=== PATIENT | female | born 1990 | race Caucasian/White ===

== ENCOUNTER 2019-06-10 13:44 | Emergency (ER) | payer MEDICAID, SELFPAY ==
[2019-06-10 13:54] VITALS: BP 122/77; PULSE 105; RESP 19; TEMP 36.3; O2SAT 99
--- NOTE | 2019-06-10 14:03 | ED.URI ---
HPI - URI/Sore Throat General Chief Complaint: Upper Respiratory Infection Stated Complaint: sore throat/fever/vomiting Time Seen by Provider: 06/10/19 14:03 Source: patient and RN notes reviewed History of Present Illness HPI Narrative: Patient is a 29-year-old female presents the urgent care with complaints of fever, sore throat, vomiting, nausea. Patient states that her son and daughter both had strep within the last 2 weeks but she did not think she could get it because she is currently on amoxicillin . Patient states that her oral surgeon put her on amoxicillin prior to having her wisdom teeth extracted. Patient states she is been taking the medication since May 18. No other acute complaints. Denies of abdominal pain or diarrhea. No acute distress noted. Patient read the plan of care. Related Data Home Medications Medication Instructions Recorded Confirmed amoxicillin 500 mg PO Q12H 06/10/19 06/10/19 Allergies Allergy/AdvReac Type Severity Reaction Status Date / Time ciprofloxacin Allergy Unknown Unknown Verified 06/10/19 13:53 Sulfa (Sulfonamide Allergy Unknown Difficulty Verified 06/10/19 13:53 Antibiotics) Breathing Review of Systems Review of Systems: Narrative: CONSTITUTIONAL: Reports a fever EYES: Denies visual changes, redness, or discharge. ENT: Reports of sore throat CARDIOVASCULAR: Denies chest pain, palpitations, or edema. RESPIRATORY: Denies cough or dyspnea. GASTROINTESTINAL: Reports of nausea and vomiting without abdominal pain or diarrhea GENITOURINARY: Denies dysuria or hematuria. SKIN: Denies rash or itching. MUSCULOSKELETAL: Denies back pain, joint pain, or myalgia. NEUROLOGIC: Denies headache, numbness, or weakness. All other systems reviewed are negative, except as documented in HPI. FOR[facility]LY [facility] Family History Family History (Updated 07/10/16 @ 11:04 by DOCTOR UNKNOWN) Grandparent Hypertension Cerebrovascular accident Carcinoma of colon Family history of lung cancer Family history of coronary artery disease Diabetes mellitus Family history of malignant neoplasm of male breast Mother Hypertension Family history of elevated blood lipids Father Family history of elevated blood lipids Sibling Family history of malignant neoplasm of cervix Other Family history of allergic disorder Family history of arthritis Social History Social History Smoking status: Never smoker Second hand tobacco smoke exposure: No Smoking end date: 03/31/11 Alcohol intake: current Substance use type: marijuana Comments At the time of my signature, I reviewed and agree with the nursing past medical, surgical, social, and family history. There is no relevant family history pertinent to the patient complaint. Exam Narrative: Exam Narrative: GENERAL: This is a well-nourished, well-developed patient, in no apparent distress. HEAD: normocephalic, atraumatic. EYES: PERRL. Sclera clear/white. Vision is grossly intact. EARS: External ears normal, auditory canals clear and without drainage, TMs normal without perforation. Hearing grossly intact. NOSE: External nose normal with no obvious nasal discharge, nares without redness, clear rhinorrhea. THROAT: Mucous membranes moist, moderate erythema noted posterior oropharynx with exudate noted to the left with mild tonsillar edema NECK: Neck supple, non-tender without lymphadenopathy CARDIOVASCULAR: Regular rate and rhythm without murmurs, gallops, or rubs. RESPIRATORY: Clear to auscultation. Breath sounds equal bilaterally. No wheezes, rales, or rhonchi. SKIN: warm, intact with no suspicious lesions or rash, good texture and turgor. NEURO: awake, alert, and oriented to person, place and time. There were no obvious focal neurologic abnormalities. EXTREMITIES: No clubbing, cyanosis, or edema. Course Vital Signs Vital signs: Vital Signs Temperature 97.4 F L 06/10/19 13:54 Pulse Rate 105 H 06/10/19 13:54 Respiratory Rate 19 03/
== END 2019-06-10 14:18 | disposition home or self-care (01) ==
PROVIDERS: Emergency Provider Nurse Practitioner Family
DX: J02.0 Streptococcal pharyngitis (principal)
CPT/HCPCS: 87880; 99213; G0463

== ENCOUNTER 2020-02-10 15:21 | Outpatient (CLI) | payer BC, SELFPAY ==
--- NOTE | ~2020-02-10 | US_ITS ---
EXAMINATION: US breast RT complete HISTORY: Mastodynia and nipple discharge TECHNIQUE: Complete right breast ultrasound was performed including all four quadrants the subareolar region. FINDINGS: No suspicious cystic or solid mass is identified in the breast. No subareolar mass or dilat ed subareolar duct is seen. IMPRESSION: No specific sonographic correlate is identified for the reported right breast pain or nipple discharg e. Further evaluation at this time should be based on clinical assessment. Continued follow-up physic al examination is recommended. Consider surgical consultation. BI-RADS Category 1: Negative Reviewed, dictated and finalized at location A. 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 Further evaluation at this time should be based on cli nical assessment. Continued follow-up physical examination is recommended. Cons ider surgical consultation. BI-RADS Category 1: Negative
== END 2020-02-10 15:22 | disposition home or self-care (01) ==
PROVIDERS: Visit Provider Obstetrics & Gynecology
DX: N64.4 Mastodynia (principal)
CPT/HCPCS: 76641

== ENCOUNTER → 2020-02-16 11:01 | Outpatient (CLI) | payer BC, SELFPAY ==
--- NOTE | ~2020-02-16 | XR_ITS ---
EXAMINATION: XR lumbar spine 2-3V DATE: 02/16/2020 11:30 INDICATION: Low back pain. TECHNIQUE: 3 views of lumbar spine were obtained. COMPARISON: None. FINDINGS: Bone alignment is normal. Vertebral body heights are normal. There is mildly decreased disc height at L4-L5. The facet joints are unremarkable. IMPRESSION: 1. Mild lumbar spondylosis. Reviewed, dictated and finalized at location A. 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 Mild lumbar spondylosis.
--- NOTE | ~2020-02-16 | XR_ITS ---
EXAMINATION: XR abdomen/kub 1V EXAM DATE: 02/16/2020 11:30 INDICATION: R10.9 - Unspecified abdominal pain. Unresolved bladder infection. TECHNIQUE: Frontal projection of the upper abdomen, frontal projection lower abdomen/pelvis for inter pretation. Comparison is made to prior examination from 05/04/2010. FINDINGS: There is expected amount of colonic stool and gas. No small bowel dilation, nonobstructiv e bowel gas pattern. There are no suspicious calcifications identified. There is no organomegaly suspected. The bones are unremarkable. IMPRESSION: Unremarkable abdomen x-ray exam. Reviewed, dictated and finalized at location A. 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
== END ==
PROVIDERS: PCP Family Medicine; Visit Provider Physician Assistant
DX: M47.816 Spondylosis without myelopathy or radiculopathy, lumbar region (principal); R10.9 Unspecified abdominal pain
CPT/HCPCS: 72100; 74018

== ENCOUNTER 2020-02-22 09:59 | Outpatient (CLI) | payer BC, SELFPAY ==
--- NOTE | ~2020-02-22 | US_ITS ---
EXAMINATION: US pelvic complete w TV DATE: 02/22/2020 10:40 INDICATION: Pelvic pain Comparison:No prior studies for comparison. TECHNIQUE: Multiple transabdominal and endovaginal sonographic images of the pelvis performed. FINDINGS: The uterus measures 8.3 x 3.9 x 6.1 cm. The endometrial complex measures 7 mm. The right ovary measures 2.6 x 2.6 x 1.9 cm and the left ovary measures 1.6 x 1.4 x 1.2 cm. There ar e small follicles in each ovary. There is no free fluid in the pelvis. There are no abnormal masses seen on either side. IMPRESSION: 1. Unremarkable pelvic ultrasound. Reviewed, dictated and finalized at location A. CAPTAIN
== END 2020-02-22 10:00 | disposition home or self-care (01) ==
LOC: ANHIMG 10:04
PROVIDERS: PCP Family Medicine; Visit Provider Obstetrics & Gynecology
DX: R10.2 Pelvic and perineal pain (principal)
CPT/HCPCS: 76830; 76856

== ENCOUNTER 2020-06-14 13:29 | Outpatient (CLI) | payer BC, SELFPAY ==
--- NOTE | ~2020-06-14 | US_ITS ---
EXAMINATION: US pelvic complete EXAM DATE: 06/14/2020 14:30 INDICATION: R10.32 - Left lower quadrant pain. Tubal ligation. TECHNIQUE: Pelvic transabdominal sonogram was performed. Patient declined transvaginal imaging. There are multiple grayscale and Doppler images available for interpretation. Comparison is made to prior examination from 02/22/2020. FINDINGS: Uterus measures 9.6 x 5.2 x 3.3 cm, and is morphologically normal. Endometrial stripe sharona sures 6 mm, within normal limits. There is no free pelvic fluid. Right adnexa: The ovary measures 2.4 x 1.0 x 1.1 cm and is morphologically normal. Ovarian vascular f low confirmed. Left adnexa: The ovary measures 3.5 x 2.2 x 1.8 cm and is morphologically normal. Ovarian vascular fl ow confirmed. IMPRESSION: 1. Unremarkable pelvic ultrasound exam. Reviewed, dictated and finalized at location A.
[2020-06-14 13:50] LABS: Hematocrit 45.3 % (37.0-47.0); Hemoglobin 14.9 g/dL (12.0-15.0); Mean Corpuscular HGB Conc 32.9 g/dl (32-36); Mean Corpuscular Volume 91.3 fl (80-100); Mean Platelet Volume 9.4 fl (7.4-10.4); Platelet Count Result 362 k/mm3 (150-375); Red Blood Count 4.96 M/mm3 (4.2-5.4); Red Cell Distribution Width 12.4 % (11.5-14.5); White Blood Count 22.7 K/mm3 (4.5-10.0)
[2020-06-14 13:57] LABS: Alanine Aminotransferase 16 U/L (4-35); Albumin Level 4.3 g/dL (3.5-5.1); Alkaline Phosphatase 90 U/L (38-126); Anion Gap 8 mmol/L (8-16); Aspartate Amino Transferase 20 U/L (14-36); Bilirubin,Total 0.1 mg/dL (0.2-1.3); Blood Urea Nitrogen 15 mg/dL (7-17); Calcium 9.3 mg/dL (8.4-10.2); Carbon Dioxide 23 mmol/L (22-30); Chloride 106 mmol/L (98-107); Estimated Glomerular Filt Rate > 60; Glucose 113 mg/dL (65-105); Potassium 4.5 mmol/L (3.4-5.0); Sodium 137 mmol/L (137-145)
== END 2020-06-14 13:30 | disposition home or self-care (01) ==
PROVIDERS: PCP Family Medicine; Visit Provider Family Medicine
DX: R10.32 Left lower quadrant pain (principal)
CPT/HCPCS: 36415; 76856; 80053; 85027

== ENCOUNTER 2020-06-18 09:05 | Outpatient (CLI) | payer BC, SELFPAY ==
--- NOTE | ~2020-06-18 | CT_ITS ---
EXAMINATION: CT abdomen pelvis w con DATE: 06/18/2020 11:01 INDICATION: Left lower quadrant abdominal pain TECHNIQUE: Computed tomography (CT) of the abdomen and pelvis was performed with 100 cc Omnipaque 350 intravenous contrast. Automated exposure control and iterative reconstruction technique were employe d. Exam dose: 754.86 mGy-cm total exam DLP. COMPARISON: 06/14/2020 pelvic ultrasound 02/16/2020 KUB FINDINGS: Lung bases are clear of infiltrate or consolidation. Normal heart size. No pericardial or pleural effusion. The liver, gallbladder, bile ducts, spleen, pancreas, pancreatic duct, and adrenal glands and kidneys are unremarkable. Normal caliber of the abdominal aorta. No intraperitoneal or retroperitoneal or pelvic mass lesion or adenopathy or ascites. The uterus, adnexal areas and urinary bladder are unremarkable. Normal appendix. No bowel obstruction, bowel wall thickening, pneumatosis or intraperitoneal free air is detected. Small fat-containing umbilical hernia. Included skeletal structures are unremarkable. IMPRESSION: No significant abnormality Reviewed, dictated and finalized at Location A. Reviewed, dictated and finalized at location A. IMPRESSION: No significant abnormality
--- NOTE | ~2020-06-18 | MR_ITS ---
EXAMINATION: MR lumbar spine wo con DATE: 06/18/2020 10:39 INDICATION: Lumbar radiculopathy TECHNIQUE: Magnetic resonance imaging (MRI) of the lumbar spine was performed without intravenous con trast. Sequences included sagittal T2-weighted FSE, sagittal T2-weighted FS FSE, sagittal T1-weighted FSE, and axial T2-weighted FSE. COMPARISON: None FINDINGS: Straightening of the normal lumbar lordosis. 2 mm retrolisthesis L4 on L5 and 3-4 mm retrolisthesis L 5 on S1. Vertebral body heights are normal. Normal marrow signal. Mild disc desiccation and mild dis c height loss at L3-L4. More prominent disc desiccation and moderate disc height loss at L4-L5 and L5 -S1. There are annular fissures at each of these levels. The conus medullaris terminates at L1. There is normal signal in the caudal spinal cord. Paravertebral soft tissues are unremarkable. The followi ng disc levels are specifically discussed: T12-L1: The disc does not extend beyond the endplate margin. There is no facet joint osteoarthritis. There is no neural foraminal stenosis. There is no central canal stenosis. L1-L2: The disc does not extend beyond the endplate margin. There is no facet joint osteoarthritis. T here is no neural foraminal stenosis. There is no central canal stenosis. L2-L3: Minimal left foraminal zone disc protrusion. There is no facet joint osteoarthritis. There is minimal left neural foraminal stenosis. There is no central canal stenosis. L3-L4: Disc is mildly bulging with superimposed central disc protrusion. There is mild bilateral face t joint osteoarthritis. There is minimal bilateral neural foraminal stenosis. There is mild central c anal stenosis. L4-L5: Disc is mildly bulging with superimposed large central disc extrusion extending from the subar ticular zone to subarticular zone with disc material extending up to 3 mm cephalad and caudal to the level of the endplates. There is mild bilateral facet joint osteoarthritis. There is mild bilateral n eural foraminal stenosis. There is severe central canal stenosis along with narrowing of the left and right lateral recesses. L5-S1: Disc is mildly bulging with superimposed central disc extrusion with moderate-sized disc mater ial extending couple millimeter caudal to the level of the superior endplate of S1. There is mild alonzo ateral facet joint osteoarthritis. There is mild bilateral neural foraminal stenosis. There is mild c entral canal stenosis. IMPRESSION: 1. Moderate lower lumbar spondylosis including large central disc extrusion at L4-L5 resulting in sev ere stenosis of the central canal and left and right lateral recesses. Reviewed, dictated and finalized at location A. IMPRESSION: 1. Moderate lower lumbar spondylosis including large central disc extrusion at L4-L5 resulting in severe stenosis of the central canal and left and right late ral recesses.
== END 2020-06-18 09:06 | disposition home or self-care (01) ==
PROVIDERS: PCP Family Medicine; Visit Provider Family Medicine
DX: R10.32 Left lower quadrant pain (principal); M47.896 Other spondylosis, lumbar region
CPT/HCPCS: 72148; 74177; Q9967

== ENCOUNTER 2020-12-17 12:08 | Emergency (ER) | payer BC, SELFPAY ==
--- NOTE | 2020-12-17 12:15 | ED.SKABFB ---
HPI - Skin/Abscess/Foreign Bdy General Chief complaint: Skin/Abscess/Foreign Body Stated complaint: rash/dizzy/itching Time Seen by Provider: 12/17/20 12:15 Source: patient and RN notes reviewed History of Present Illness HPI narrative: Patient is a 30-year-old female who presents the urgent care with complaints of a spreading itchy rash to her legs, groin, abdomen. Patient states that it started last Friday and she has not done anything [id number] for her symptoms. States that her son has one bump on his arm but otherwise no one else in the household has the rash. No other acute complaints. No acute distress noted. Patient aware of the plan of care. Some parts of this dictation were generated by voice recognition software and may contain typographical and/or grammatical inaccuracies. Related Data Allergies Allergy/AdvReac Type Severity Reaction Status Date / Time ciprofloxacin Allergy Unknown Unknown Verified 12/17/20 12:23 Sulfa (Sulfonamide Allergy Unknown Difficulty Verified 12/17/20 12:23 Antibiotics) Breathing Review of Systems Review of Systems: CONSTITUTIONAL: Denies fever, chills, or sweats. EYES: Denies visual changes, redness, or discharge. ENT: Denies rhinorrhea, congestion, sore throat, or otalgia. CARDIOVASCULAR: Denies chest pain, palpitations, or edema. RESPIRATORY: Denies cough or dyspnea. GASTROINTESTINAL: Denies abdominal pain, nausea, vomiting, or diarrhea. GENITOURINARY: Denies dysuria or hematuria. SKIN: Reports of itchy spreading rash to the lower abdomen, vaginal region, arms and legs MUSCULOSKELETAL: Denies back pain, joint pain, or myalgia. NEUROLOGIC: Denies headache, numbness, or weakness. All other systems reviewed are negative, except as documented in HPI. FORMERLY [facility] Past Medical History Medical History Chronic low back pain Family History Family History Grandparent Hypertension Cerebrovascular accident Carcinoma of colon Family history of lung cancer Family history of coronary artery disease Diabetes mellitus Family history of malignant neoplasm of male breast Mother Hypertension Family history of elevated blood lipids Father Family history of elevated blood lipids Sibling Family history of malignant neoplasm of cervix Other Family history of allergic disorder Family history of arthritis Social History Social History (Updated 11/02/20 @ 09:49 by Miranda Le, [facility]) Smoking status: Current every day smoker Second hand tobacco smoke exposure: No Alcohol intake: current Substance use type: marijuana Other substance usage details: qpm for insomnia Comments At the time of my signature, I reviewed and agree with the nursing past medical, surgical, social, and family history. There is no relevant family history pertinent to the patient complaint. Exam Narrative: GENERAL: This is a well-nourished, well-developed patient, in no apparent distress. HEAD: normocephalic, atraumatic. EYES: PERRL. Sclera clear/white. Vision is grossly intact. EARS: External ears normal NOSE: External nose normal with no obvious nasal discharge, nares without redness, no rhinorrhea. THROAT: Mucous membranes moist NECK: Neck supple CARDIOVASCULAR: Regular rate and rhythm without murmurs, gallops, or rubs. RESPIRATORY: Clear to auscultation. Breath sounds equal bilaterally. No wheezes, rales, or rhonchi. SKIN: Very faint scattered what appears to be insect bites to bilateral arms, bilateral legs, lower abdomen NEURO: awake, alert, and oriented to person, place and time. There were no obvious focal neurologic abnormalities. EXTREMITIES: No clubbing, cyanosis, or edema. Course Vital Signs Vital signs: Vital Signs Temperature 98 F 12/17/20 12:22 Pulse Rate 90 12/17/20 12:22 Respiratory Rate 16 12/17/20 12:22 Blood Pressure 116/81 12/17/20 12
[2020-12-17 12:22] VITALS: BP 116/81; PULSE 90; RESP 16; TEMP 36.6; O2SAT 99
[2020-12-17 12:23] VITALS: BP 116/81; PULSE 90; RESP 16; TEMP 36.6; O2SAT 99
== END 2020-12-17 12:32 | disposition home or self-care (01) ==
PROVIDERS: Emergency Provider Nurse Practitioner Family; PCP Family Medicine
DX: L23.7 Allergic contact dermatitis due to plants, except food (principal); F17.200 Nicotine dependence, unspecified, uncomplicated
CPT/HCPCS: 99213; G0463

== ENCOUNTER 2021-05-13 11:32 | Emergency (ER) | payer OTHER, BC, SELFPAY ==
--- NOTE | ~2021-05-13 | XR_ITS ---
EXAMINATION: XR hip LT min 2V DATE: 05/13/2021 11:57 INDICATION: Left hip pain. TECHNIQUE: 2 views of left hip were obtained. COMPARISON: CT abdomen and pelvis 06/18/2020 FINDINGS: Bone alignment is normal. No fracture. There is a chronic benign bone island in left ilium. There is mild left hip osteoarthritis. IMPRESSION: 1. Mild left hip osteoarthritis. Reviewed, dictated and finalized at location A. R HEAD
--- NOTE | ~2021-05-13 | XR_ITS ---
EXAMINATION: XR elbow LT min 3V DATE: 05/13/2021 11:57 INDICATION: Left elbow pain. Fall. TECHNIQUE: 4 views of left elbow were obtained. COMPARISON: None. FINDINGS: Bone alignment is normal. No fracture. Joint spaces are well maintained. There is no elbow joint effusion. IMPRESSION: 1. Normal left elbow. Reviewed, dictated and finalized at location A. 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 Normal left elbow.
[2021-05-13 11:36] VITALS: BP 141/85; PULSE 87; RESP 16; TEMP 36.8; O2SAT 99
--- NOTE | 2021-05-13 11:36 | ED.UPPEXIN ---
HPI - Extremity Injury (Upper) General Chief Complaint: Extremity Injury, Upper Stated Complaint: FALL Time Seen by Provider: 05/13/21 11:36 Source: patient, family, RN notes reviewed and old records reviewed Mode of arrival: ambulatory Limitations: no limitations History of Present Illness HPI narrative: 31-year-old female presents to the [facility] after slipping and falling in a parking lot last night. Reports falling and landing on her left elbow and left hip. States she took ibuprofen and her prescribed hydrocodone. Walked with a normal gait. Able to take off her own jacket without issue. Has full range of motion. Denies hitting head. No loss of consciousness, blurry vision, change in vision. No saddle anesthesia. Denies any new back pain, states she has chronic lower back pain from degenerative disc disease and spondylosis. MD complaint: injury to: left and elbow Other Extremity Injury: Left: elbow Other injuries: none (Left hip) Related Data Allergies Allergy/AdvReac Type Severity Reaction Status Date / Time ciprofloxacin Allergy Unknown Unknown Verified 05/13/21 11:38 Sulfa (Sulfonamide Allergy Unknown Difficulty Verified 05/13/21 11:38 Antibiotics) Breathing Review of Systems Review of Systems: All systems reviewed & are unremarkable except as noted in HPI and below Constitutional: Constitutional: Reports no additional constitutional complaints, Denies chills, Denies fever(s), Denies headache(s) and Denies weakness Eyes: Eyes: Reports no additional eye complaints ENT: Reports system reviewed and no additional complaints, except as documented, Denies vertigo, Denies dizziness and Denies headache(s) Cardiovascular: Cardiovascular: Reports no additional cardiovascular complaints, Denies chest pain, Denies syncope and Denies dyspnea Respiratory: Respiratory: Reports no additional respiratory complaints, Denies cough and Denies dyspnea Gastrointestinal: Gastrointestinal: Reports no additional gastrointestinal complaints, Denies abdominal pain, Denies nausea and Denies vomiting Genitourinary: Genitourinary: Reports no additional female genitourinary complaints and Denies urinary incontinence Musculoskeletal: Musculoskeletal: Reports as per HPI, Reports arthralgias (Left elbow, left hip), Denies joint swelling and Denies numbness Integumentary/Breasts: Skin/Breast: Reports system reviewed and no additional complaints, except as docu Neurologic: Reports system reviewed and no additional complaints, except as documented, Denies confusion, Denies vertigo, Denies dizziness, Denies syncope, Denies headache(s), Denies focal weakness, Denies numbness and Denies weakness Psychiatric: Psychiatric: Reports no additional psychiatric complaints and Denies confusion Allergic/Immunologic: Allergic/Immunologic: Reports no additional allergic/immunologic complaints PMFSH Past Medical History Medical History Chronic low back pain Family History Family History Grandparent Hypertension Cerebrovascular accident Carcinoma of colon Family history of lung cancer Family history of coronary artery disease Diabetes mellitus Family history of malignant neoplasm of male breast Mother Hypertension Family history of elevated blood lipids Father Family history of elevated blood lipids Sibling Family history of malignant neoplasm of cervix Other Family history of allergic disorder Family history of arthritis Social History Social History Smoking status: Current every day smoker Second hand tobacco smoke exposure: No Alcohol intake: current Substance use type: marijuana Other substance usage details: qpm for insomnia Comments At the time of my signature, I reviewed and agree with the nursing past medical, surgical, social, and family history. There is no relevant fam
== END 2021-05-13 12:10 | disposition home or self-care (01) ==
PROVIDERS: Emergency Provider Nurse Practitioner; PCP Family Medicine
DX: S50.02XA Contusion of left elbow, initial encounter (principal); S70.02XA Contusion of left hip, initial encounter; S50.312A Abrasion of left elbow, initial encounter; W19.XXXA Unspecified fall, initial encounter; M16.12 Unilateral primary osteoarthritis, left hip; F17.200 Nicotine dependence, unspecified, uncomplicated; M47.9 Spondylosis, unspecified
CPT/HCPCS: 73080; 73502; 99214; G0463

== ENCOUNTER 2021-08-23 12:18 | Outpatient (CLI) | payer BC, SELFPAY ==
--- NOTE | ~2021-08-23 | XR_ITS ---
EXAMINATION: XR sacroiliac joints min 3V DATE: 08/23/2021 13:02 INDICATION: Sacroiliitis TECHNIQUE: AP and left and right oblique views of the sacral iliac joints were obtained. COMPARISON: CT dated 06/18/2020 FINDINGS: Bilateral sacroiliac joint spaces are relatively preserved. There is asymmetric iliac predominant sub articular sclerosis along with a couple associated small lucent erosions couple the left and right sa croiliac joints consistent with provided history of sacroiliitis. Sacral arches are intact. Bilateral hip joint spaces are normal. Left iliac bone island. No fractures. Mild lower lumbar spondylosis. IMPRESSION: 1. Mild bilateral sacroiliitis which appears relatively symmetric which would favor ankylosing spondy litis, psoriatic arthritis, reactive arthritis or enteropathic arthritis. Differential for would incl ude more typically asymmetric osteoarthritis or crystalline arthropathy. Reviewed, dictated and finalized at location B. IMPRESSION: 1. Mild bilateral sacroiliitis which appears relatively symmetric which would f avor ankylosing spondylitis, psoriatic arthritis, reactive arthritis or enterop athic arthritis. Differential for would include more typically asymmetric osteo arthritis or crystalline arthropathy.
== END 2021-08-23 12:19 | disposition home or self-care (01) ==
LOC: ANHIMG 12:28
PROVIDERS: PCP Family Medicine
DX: M46.1 Sacroiliitis, not elsewhere classified (principal); M47.816 Spondylosis without myelopathy or radiculopathy, lumbar region
CPT/HCPCS: 72202

== ENCOUNTER 2022-08-03 21:13 | Emergency (ER) | payer BC, SELFPAY ==
--- NOTE | ~2022-08-03 | CT_ITS ---
EXAMINATION: CT lumbar spine wo con DATE: 08/03/2022 23:49 INDICATION: Back pain radiating down the right leg. TECHNIQUE: Computed tomography (CT) of the lumbar spine was performed without intravenous contrast. A utomated exposure control and iterative reconstruction technique were employed. The dose-length produ ct was 634.84 mGy-cm. COMPARISON: None FINDINGS: Bone alignment is normal. Vertebral body heights are normal. There is moderately decreased disc height at L4-L5 and mildly decreased disc height at L5-S1. The following disc levels are specifi jef discussed: L1-L2: The disc does not extend beyond the endplate margin. There is mild bilateral facet joint osteo arthritis. There is no neural foraminal stenosis. There is no central canal stenosis. L2-L3: The disc does not extend beyond the endplate margin. There is mild bilateral facet joint osteo arthritis. There is no neural foraminal stenosis. There is no central canal stenosis. L3-L4: The disc is bulging with superimposed central extrusion. There is mild bilateral facet joint o steoarthritis. There is mild bilateral neural foraminal stenosis. There is mild central canal stenosi s. L4-L5: The disc is bulging with superimposed large right central extrusion with 18 mm inferior extens ion and mass effect on the right L5 and S1 nerve roots. There is no facet joint osteoarthritis. There is moderate bilateral neural foraminal stenosis. There is moderate central canal stenosis. L5-S1: The disc is bulging. There is mild bilateral facet joint osteoarthritis. There is mild bilater al neural foraminal stenosis. There is mild central canal stenosis. IMPRESSION: 1. Moderate lumbar spondylosis. Of note, a large extrusion at L4-L5 exerts mass effect on the right L 5 and S1 nerve roots. Reviewed, dictated and finalized at location A. IMPRESSION: 1. Moderate lumbar spondylosis. Of note, a large extrusion at L4-L5 exerts mass effect on the right L5 and S1 nerve roots.
[2022-08-03 21:31] VITALS: BP 107/61; PULSE 91; RESP 17; TEMP 37.1; O2SAT 99
[2022-08-03 21:47] VITALS: BP 129/77; PULSE 81; RESP 18; O2SAT 98
[2022-08-03] MEDS: methylPREDNISolone SOD SUCC 125 MG VIAL IV PUSH (23:12)
[2022-08-03] MEDS: KETOROLAC 15 MG/ML VIAL (*BKC) IV PUSH (23:13)
[2022-08-03] MEDS: HYDROmorphone HCL INJ (*CRX) 1 MG/ML SYR IV PUSH (23:13)
[2022-08-03 23:33] LABS: Basophils Absolute Auto 0.1 K/mm3 (0.0-0.1); Basophils Percent Auto 0.6 % (0.2-1.2); Eosinophils Absolute Auto 0.3 K/mm3 (0-0.3); Eosinophils Percent Auto 2.2 % (0-4.4); Hematocrit 39.3 % (37.0-47.0); Hemoglobin 12.9 g/dL (12.0-15.0); Immature Granulocyte Absolute 0.06 K/mm3 (0.00-0.031); Immature Granulocyte Percent A 0.5 % (0-0.5); Lymphocytes Absolute Auto 2.31 K/mm3 (0.9-3.2); Lymphocytes Percent Auto 19.1 % (18.3-44.2); Mean Corpuscular HGB Conc 32.8 g/dl (32-36); Mean Corpuscular Hemoglobin 29.6 pg (26-34); Mean Corpuscular Volume 90.1 fl (80-100); Monocytes Absolute Auto 0.9 K/mm3 (0.1-0.6); Monocytes Percent Auto 7.7 % (2.6-8.5); Neutrophils Absolute Auto 8.5 K/mm3 (1.3-6.7); Neutrophils Percent Auto 69.9 % (45.5-73.1); Platelet Count Result 383 k/mm3 (150-375); Red Blood Count 4.36 M/mm3 (4.2-5.4); Red Cell Distribution Width 13.1 % (11.5-14.5); White Blood Count 12.1 K/mm3 (4.5-10.0)
--- NOTE | 2022-08-03 23:36 | ED.GENADULT ---
HPI - General Adult General Chief complaint: Extremity Problem,Nontraumatic Stated complaint: leg pain Time Seen by Provider: 08/03/22 22:29 History of Present Illness HPI narrative: Patient a 32-year-old female who presents emergency department with chief complaint of low back pain and pain radiating down her right leg. Patient reports that today she felt a cramping-like sensation that started in her right buttock area and shoots down her right leg. The patient reports that she is had no bowel or bladder dysfunction reports there is some tingling sensation with it as well. Patient reports that the pain is worse with putting pressure on her leg. Patient reports she has been seen recently at an urgent care after she had had a fall on some steps and reports that that she was told that she had bruised her tailbone. The patient was instructed to her symptoms worsen she should come to the emergency department. Related Data Allergies Allergy/AdvReac Type Severity Reaction Status Date / Time ciprofloxacin Allergy Unknown Unknown Verified 08/03/22 21:47 Sulfa (Sulfonamide Allergy Unknown Difficulty Verified 08/03/22 21:47 Antibiotics) Breathing Review of Systems Review of Systems: A 10 system review of systems was completed on the patient and is negative except for what is stated in the HPI. Nursing and ancillary documentation was reviewed. [facility] Past Medical History Medical History Chronic low back pain Family History Family History Grandparent Hypertension Cerebrovascular accident Carcinoma of colon Family history of lung cancer Family history of coronary artery disease Diabetes mellitus Family history of malignant neoplasm of male breast Mother Hypertension Family history of elevated blood lipids Father Family history of elevated blood lipids Sibling Family history of malignant neoplasm of cervix Sibling Bipolar disorder with psychotic features Schizophrenia Other Family history of allergic disorder Family history of arthritis Social History Social History Smoking status: Former smoker Second hand tobacco smoke exposure: No Smoking end date: 05/16/21 Alcohol intake: never Substance use: current Substance use type: marijuana Other substance usage details: qpm for insomnia Course Vital Signs Vital signs: Vital Signs Temperature 37.1 C 08/03/22 21:31 Pulse Rate 91 08/03/22 21:31 Respiratory Rate 17 05/06/23 21:31 Blood Pressure 107/61 08/03/22 21:31 Pulse Oximetry 99 08/03/22 21:31 Oxygen Delivery Room Air 08/03/22 21:31 Temperature 37.1 C 08/03/22 21:31 Pulse Rate 81 08/03/22 21:47 Respiratory Rate 18 08/03/22 21:47 Blood Pressure 129/77 08/03/22 21:47 Pulse Oximetry 98 08/03/22 21:47 Oxygen Delivery Room Air 08/03/22 21:31 Medical Decision Making [facility] Narrative Medical decision making narrative: Differential diagnosis includes acute nerve root compression, cauda equina, chronic lumbar radiculopathy. Patient's pain was controlled in the emergency department and patient was given steroids and anti-inflammatories. CT scan of lumbar spine showed a L4-L5 disc extrusion extending along the posterior aspect of L5 in the central and paracentral regions there is probable compression of bilateral L5 nerve roots. In discussion with the patient she has had issues at this level previously the patient states that her pain and paresthesias have significantly improved with the steroids and pain medication. The patient currently denies bowel or bladder dysfunction denies foot drop does report that she still has some paresthesias in her right foot area but reports that the rest of the paresthesias have essentially resolved. The patient was able to ambula
[2022-08-03 23:38] VITALS: O2SAT 92
[2022-08-03 23:44] LABS: Add Urine Microscopic? YES; Alanine Aminotransferase 24 U/L (6-35); Albumin Level 4.5 g/dL (3.5-5.1); Alkaline Phosphatase 104 U/L (38-126); Anion Gap 8 mmol/L (8-16); Appearance Urine Clear (Clear); Aspartate Amino Transferase 22 U/L (14-36); Bilirubin Urine Negative (Negative); Bilirubin,Total 0.5 mg/dL (0.2-1.3); Blood Urea Nitrogen 15 mg/dL (7-17); Blood Urine Negative (Negative); Calcium 9.2 mg/dL (8.4-10.2); Carbon Dioxide 27 mmol/L (22-30); Chloride 102 mmol/L (98-107); Color Urine Yellow (Yellow); Estimated CRCL calculation 104 ml/min; Estimated Glomerular Filt Rate > 60; Glucose 97 mg/dL (65-110); Glucose Urine UA Negative (Negative); Ketones Urine Trace mg/dL (Negative); Leukocyte Esterase Ur Negative LEU/UL (Negative); Nitrate Urine Negative (Negative); Potassium 3.7 mmol/L (3.4-5.0); Protein Urine Negative (Negative); Sodium 137 mmol/L (137-145); Specific Grav Ur 1.025 (1.001-1.035); pH Urine 5.5 (5.0-9.0)
[2022-08-03 23:53] VITALS: O2SAT 97
[2022-08-04] VITALS (10 sets, daily range): BP systolic 97–111; BP diastolic 54–65; O2SAT 96–99
== END 2022-08-04 02:05 | disposition home or self-care (01) ==
PROVIDERS: Emergency Provider Emergency Medicine; PCP Family Medicine
DX: M54.16 Radiculopathy, lumbar region (principal); Z87.891 Personal history of nicotine dependence
CPT/HCPCS: 36415; 72131; 80053; 81001; 81025; 83735; 85025; 96374; 96375; 99284; J1170; J1885; J2930